=== PATIENT | female | born 1955 | race Caucasian/White ===

== ENCOUNTER 2020-02-23 09:25 | Emergency (ER) | payer MEDICARE, SELFPAY ==
[2020-02-23 09:40] VITALS: BP 143/80; PULSE 63; RESP 16; TEMP 37.1; O2SAT 99
--- NOTE | 2020-02-23 09:48 | ED.EYEPROB ---
HPI - Eye Problem General Chief complaint: Eye Problems Stated complaint: itch/swollen eyes Time Seen by Provider: 02/23/20 09:48 Source: patient and RN notes reviewed History of Present Illness HPI Narrative: Patient is a 64-year-old female who presents the urgent care with complaints of bilateral eye swelling, itchiness, redness. Patient states that she recently had her cabinets painted and was cleaning them out with increased dose of Windex. Patient states that she believes may be she has some irritation from the cleaning products . Patient denies being outside or any known insect bites. Denies of any known injury to the eyes. Denies of any fever, changes in vision, nausea, vomiting. Patient does wear eyeglasses and not contacts. No other acute complaints. No acute distress noted. Patient read the plan of care. Related Data Home Medications Medication Instructions Recorded Confirmed anastrozole 1 mg tablet 1 mg PO DAILY 09/09/19 vilazodone 40 mg tablet 40 mg PO DAILY 09/09/19 calcium carbonate 600 mg calcium 600 mg PO DAILY 12/13/19 (1,500 mg) tablet cholecalciferol (vitamin D3) 50 50 mcg PO DAILY 12/13/19 mcg (2,000 unit) capsule diclofenac sodium 75 mg 75 mg PO ONCE tablet 12/13/19 tablet,delayed release Allergies Allergy/AdvReac Type Severity Reaction Status Date / Time No Known Allergies Allergy Unknown Verified 01/08/20 10:41 Review of Systems Review of Systems: Narrative: CONSTITUTIONAL: Denies fever, chills, or sweats. EYES: Reports of itchy bilateral swollen eyes ENT: Denies rhinorrhea, congestion, sore throat, or otalgia. CARDIOVASCULAR: Denies chest pain, palpitations, or edema. RESPIRATORY: Denies cough or dyspnea. GASTROINTESTINAL: Denies abdominal pain, nausea, vomiting, or diarrhea. GENITOURINARY: Denies dysuria or hematuria. SKIN: Denies rash or itching. MUSCULOSKELETAL: Denies back pain, joint pain, or myalgia. NEUROLOGIC: Denies headache, numbness, or weakness. All other systems reviewed are negative, except as documented in HPI. [facility] Social History Social History Smoking status: Never smoker Second hand tobacco smoke exposure: No Alcohol intake: current Comments At the time of my signature, I reviewed and agree with the nursing past medical, surgical, social, and family history. There is no relevant family history pertinent to the patient complaint. Exam Narrative: Exam Narrative: GENERAL: This is a well-nourished, well-developed patient, in no apparent distress. HEAD: normocephalic, atraumatic. EYES: PERRL. Sclera clear/white. Vision is grossly intact. Mild bilateral upper eyelid swelling with mild surrounding erythema bilaterally EARS: External ears normal NOSE: External nose normal with no obvious nasal discharge, nares without redness, no rhinorrhea. THROAT: Mucous membranes moist NECK: Neck supple CARDIOVASCULAR: Regular rate and rhythm without murmurs, gallops, or rubs. RESPIRATORY: Clear to auscultation. Breath sounds equal bilaterally. No wheezes, rales, or rhonchi. SKIN: warm, intact with no suspicious lesions or rash, good texture and turgor. NEURO: awake, alert, and oriented to person, place and time. There were no obvious focal neurologic abnormalities. EXTREMITIES: No clubbing, cyanosis, or edema. Course Vital Signs Vital signs: Vital Signs Temperature 98.7 F 02/23/20 09:40 Pulse Rate 63 02/23/20 09:40 Respiratory Rate 16 02/23/20 09:40 Blood Pressure 143/80 H 02/23/20 09:40 Pulse Oximetry 99 02/23/20 09:40 Temperature 98.7 F 02/23/20 09:40 Pulse Rate 63 02/23/20 09:40 Respiratory Rate 16 02/23/20 09:40 Blood Pressure 143/80 H 02/23/20 09:40 Pulse Oximetry 99 02/23/20 09:40 Reviewed?patient is informed that they may have pre-hypertension or hypertension based on a blood pressure reading in the department. I recommend the patient call the primary care pro
[2020-02-23] MEDS: predniSONE 20 MG TABLET 60 MG PO (10:01)
== END 2020-02-23 10:22 | disposition home or self-care (01) ==
PROVIDERS: Emergency Provider Nurse Practitioner Family
DX: H57.89 Other specified disorders of eye and adnexa (principal); Z85.3 Personal history of malignant neoplasm of breast
CPT/HCPCS: 99213; G0463; J7512

== ENCOUNTER → 2020-07-02 13:49 | Outpatient (CLI) | payer MEDICARE, SELFPAY ==
--- NOTE | ~2020-07-02 | US_ITS ---
EXAMINATION: US pelvic complete w TV DATE: 07/02/2020 14:22 INDICATION: Left lower quadrant pain Comparison:Left lower quadrant pain TECHNIQUE: Multiple transabdominal and endovaginal sonographic images of the pelvis performed. FINDINGS: The uterus measures 5.5 x 2.7 x 3.6 cm. Uterus is retroverted. There are uterine fibroids m easuring 2.1 cm maximum dimension at the fundus. The endometrial complex measures 0.1 cm. The right ovary measures 1.1 x 1.1 x 2 cm and the left ovary measures 1.4 x 1.4 x 1.1 cm. There are o varian calcifications. There are small follicles in each ovary. There is no free fluid in the pelvis. There are no abnormal masses seen on either side. IMPRESSION: 1. Uterine fibroids, largest at the fundus measuring 2.1 x 1.8 x 1.5 cm. Reviewed, dictated and finalized at location A.
== END ==
PROVIDERS: PCP Family Medicine
DX: D25.9 Leiomyoma of uterus, unspecified (principal)
CPT/HCPCS: 76830; 76856

== ENCOUNTER 2020-12-18 07:46 | Outpatient (CLI) | payer MEDICARE, SELFPAY ==
--- NOTE | ~2020-12-18 | US_ITS ---
EXAMINATION: US abdomen limited DATE: 12/18/2020 08:13 INDICATION: Unspecified abdominal pain. TECHNIQUE: Multiple grayscale and Doppler ultrasound images of the abdomen were obtained. COMPARISON: None FINDINGS: The visualized portions of the head and body of the pancreas are normal. The liver is héctor l without focal lesion. No liver surface nodularity. The gallbladder is normal in size and filled wit h stones. No gallbladder wall thickening or sonographic Kang sign. The common duct is dilated to 8 mm. There is normal flow in main portal vein. IMPRESSION: 1. Mildly dilated common duct. 2. Cholelithiasis. No evidence of acute cholecystitis. Reviewed, dictated and finalized at location A.
== END 2020-12-18 07:47 | disposition home or self-care (01) ==
LOC: ANHIMG 07:48
PROVIDERS: PCP Family Medicine; Visit Provider Physician Assistant
DX: R10.9 Unspecified abdominal pain (principal); K80.20 Calculus of gallbladder without cholecystitis without obstruction
CPT/HCPCS: 76705

== ENCOUNTER 2022-07-13 12:35 | Emergency (ER) | payer MEDICARE, SELFPAY ==
--- NOTE | ~2022-07-13 | XR_ITS ---
EXAMINATION: XR foot RT min 3V DATE: 07/13/2022 12:57 INDICATION: Right great toe injury. TECHNIQUE: 4 views of right foot were obtained. COMPARISON: None. FINDINGS: There is a comminuted intra-articular fracture of base of first distal phalanx. The main di stal fracture fragment demonstrates near-anatomic alignment. There is severe osteoarthritis of first metatarsophalangeal joint and mild osteoarthritis of some of the interphalangeal joints. There is an enthesophyte at plantar aspect of calcaneal tuberosity. IMPRESSION: 1. Comminuted fracture of first distal phalanx. 2. 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 Reviewed, dictated and finalized at location A. E TENDER
[2022-07-13 12:46] VITALS: BP 127/68; PULSE 71; RESP 16; TEMP 36.7; O2SAT 99
--- NOTE | 2022-07-13 13:47 | ED.LOWEXIN ---
HPI - Extremity Injury (Lower) General Chief Complaint: Extremity Injury, Lower Stated Complaint: Right Foot Big Toe Pain Time Seen by Provider: 07/13/22 13:47 Source: patient Mode of arrival: ambulatory Limitations: no limitations History of Present Illness HPI Narrative: 67 y/o female presented for c/o right great toe bruising after injury yesterday. States she tripped getting out of her car. Continues to have bleeding from toe and swelling. Denies pain. Denies broken toenail. She has applied bandaid. Related Data Home Medications Medication Instructions Recorded Confirmed calcium carbonate 600 mg calcium 600 mg PO DAILY 12/13/19 07/13/22 (1,500 mg) tablet (Calcium) cholecalciferol (vitamin D3) 50 50 mcg PO DAILY 12/13/19 07/13/22 mcg (2,000 unit) capsule Allergies Allergy/AdvReac Type Severity Reaction Status Date / Time No Known Allergies Allergy Unknown Verified 07/13/22 13:00 Review of Systems Review of Systems: CONSTITUTIONAL: Denies body aches, fever, chills CARDIOVASCULAR: Denies chest pain, palpitations, or edema. RESPIRATORY: Denies cough or dyspnea. SKIN: Denies rash, itching, or wounds. MUSCULOSKELETAL: Left toe bruising and bleeding NEUROLOGIC: Denies headache, numbness, tingling, or weakness. All systems reviewed & are unremarkable except as noted in HPI and below PMFSH Past Medical History Medical History History of right breast cancer Major depressive disorder, recurrent Malignant neoplasm of unspecified site of unspecified female breast Mixed hyperlipidemia Surgical History Surgical History History of back surgery History of knee replacement bilateral History of lumpectomy of right breast [place] teeth extracted Family History Family History Sibling Depression Family history of arthritis Mother Depression Family history of malignant neoplasm of ovary, Onset Age: 63 Grandparent Lung cancer Other Family history of malignant neoplasm Family history of mental disorder No family history of cardiovascular disease No family history of diabetes mellitus No family history of hypertension No family history of malignant neoplasm Social History Social History Second hand tobacco smoke exposure: No Alcohol intake: current Comments At time of signature, I have reviewed and agree with nursing past medical, surgical, social and family history unless otherwise noted. Please see nursing chart for further information. There is no relevant family history pertinent to the presenting complaint Exam Narrative: GENERAL: Well-appearing CHEST: Speaks in full sentences. No respiratory distress. HEART: Regular rate and rhythm. Normal and equal peripheral pulses. EXTREMITIES: Left foot 1st toe with hematoma surrounding cuticle, oozing scant amount of blood from cuticle, nontender, nail is intact, moderate swelling to toe. Toe has normal strength and sensation, slightly limited range of motion to toe. No obvious deformity; pulse palpable and equal bilaterally, skin warm, dry, pink. Capillary refill less than 3 seconds. SKIN: Warm, dry, no rash. Course Course Emergency Course: Patient is aware of diagnosis, understands and agrees to treatment plan. Anticipatory guidance given. Patient agrees to follow-up as directed and is aware of reasons to seek care at the emergency department. Portions of this record may have been created with voice recognition software Level of Care: Express Care Visit Vital Signs Vital signs: Vital Signs Temperature 98.1 F 07/13/22 12:46 Pulse Rate 71 07/13/22 12:46 Respiratory Rate 16 07/13/22 12:46 Blood Pressure 127/68 07/13/22 12:46 Pulse Oximetry 99 07/13/22 12:46 Oxygen Delivery Room Air
== END 2022-07-13 15:02 | disposition home or self-care (01) ==
PROVIDERS: Emergency Provider Nurse Practitioner Family; PCP Student in an Organized Health Care Education/Training Program
DX: S92.421A Displaced fracture of distal phalanx of right great toe, initial encounter for closed fracture (principal); V48.4XXA Person boarding or alighting a car injured in noncollision transport accident, initial encounter; E78.2 Mixed hyperlipidemia; Z85.3 Personal history of malignant neoplasm of breast; Z96.653 Presence of artificial knee joint, bilateral; F32.9 Major depressive disorder, single episode, unspecified
CPT/HCPCS: 73630; 99214; G0463

== ENCOUNTER 2023-11-10 08:25 | Outpatient (CLI) | payer MEDICARE, SELFPAY ==
--- NOTE | ~2023-11-10 | US_ITS ---
Renal-Bladder ultrasound Clinical History: Elevated serum creatinine Technique: Real-time sonographic imaging of the kidneys and urinary bladder was performed. Findings: The right kidney measures 10.5 cm in length and the left kidney measures 11.1 cm. Probable minimal bilateral hydronephrosis. Renal cortical echogenicity is within normal limits. 5 cm left lowe r pole renal cyst present. The urinary bladder is moderately distended at the time of this exam. No intraluminal echoes are iden tified. No abnormal wall thickening is seen. Impression: Probable minimal bilateral hydronephrosis. Reviewed, dictated and finalized at location M. [employer]ING [employer] DIRECT[employer] Impression: Probable minimal bilateral hydronephrosis.
== END 2023-11-10 08:26 | disposition home or self-care (01) ==
PROVIDERS: PCP Student in an Organized Health Care Education/Training Program; Visit Provider Student in an Organized Health Care Education/Training Program
DX: R79.89 Other specified abnormal findings of blood chemistry (principal)
CPT/HCPCS: 76770

== ENCOUNTER 2025-01-29 10:17 | Outpatient (CLI) | payer MEDICARE, SELFPAY ==
--- NOTE | ~2025-01-29 | US_ITS ---
Limited Abdominal Sonogram: Real-time sonographic imaging of the right upper quadrant was performed. Clinical History: Right upper quadrant pain Findings: The liver appears normal with no evidence of mass lesion or bile duct dilatation. Main por delroy vein demonstrates normal direction of flow. The gallbladder is partially distended with echogenic shadowing gallstones probably present, with wall echo shadow complex. The common bile duct measures 9 mm. The visualized pancreas, aorta, and IVC are unremarkable. Impression: Cholelithiasis, gallbladder probably filled with stones. Mildly dilated common bile duct. Consider MRCP to further evaluate for common duct stones, if indicat ed. Reviewed, dictated and finalized at location . Impression: Cholelithiasis, gallbladder probably filled with stones. Mildly dilated common bile duct. Consider MRCP to further evaluate for common d uct stones, if indicated.
== END 2025-01-29 10:18 | disposition home or self-care (01) ==
LOC: MICIMG 10:18
PROVIDERS: PCP Student in an Organized Health Care Education/Training Program; Visit Provider Student in an Organized Health Care Education/Training Program
DX: K80.80 Other cholelithiasis without obstruction (principal); K83.8 Other specified diseases of biliary tract
CPT/HCPCS: 76705

== ENCOUNTER 2025-04-18 14:55 | Emergency (ER) | payer MEDICARE, SELFPAY ==
--- NOTE | ~2025-04-18 | XR_ITS ---
EXAMINATION: XR toe 5th RT min 2V DATE: 04/18/2025 15:22 INDICATION: Right fifth toe pain post trauma one week prior TECHNIQUE: Dorsal plantar, lateral and oblique views of the right fifth were obtained. COMPARISON: None FINDINGS: Nondisplaced extra articular fracture extending across the proximal metaphyseal region of the right f ifth proximal phalanx. Alignment remains essentially anatomic. No other fractures identified. Polyart icular osteoarthritis, moderate severity at the second metatarsophalangeal joint and mild at a few of the tarsometatarsal and interphalangeal joints. IMPRESSION: Nondisplaced extra articular fracture near the base of the fifth proximal phalanx. Reviewed, dictated and finalized at location A. IMPRESSION: Nondisplaced extra articular fracture near the base of the fifth proximal phala nx.
[2025-04-18 15:06] VITALS: BP 126/82; PULSE 77; RESP 16; TEMP 37.3; O2SAT 98
--- NOTE | 2025-04-18 15:22 | ED_ITS ---
HPI - Extremity Injury (Lower) General Chief Complaint: Extremity Injury, Lower Stated Complaint: Right Foot Toe Pain Time Seen by Provider: 04/18/25 15:35 Source: patient and RN notes reviewed Mode of arrival: ambulatory Limitations: no limitations History of Present Illness HPI Narrative: 70-year-old female presents concern for pain the 5th digit of the right foot. One week ago she jammed it on a chair. Reports she has been using ice and elevation. Reports pain continues despite those interventions. She reports mild swelling. MD complaint: foot injury Related Data Home Medications ?Medication ?Instructions ?Recorded ?Confirmed ?Last Taken ?Type cholecalciferol (vitamin D3) 50 50 mcg PO DAILY 12/13/19 10/26/22 Unknown History mcg (2,000 unit) capsule sertraline 50 mg tablet mg 04/18/25 Unknown History Allergies Allergy/AdvReac Type Severity Reaction Status Date / Time bupropion (From Wellbutrin) AdvReac Intermediate Nausea and Verified 04/18/25 15:15 Vomiting magnesium AdvReac Mild Diarrhea Verified 04/18/25 15:15 gabapentin AdvReac Nausea and Verified 04/18/25 15:15 Vomiting Review of Systems Review of Systems: CONSTITUTIONAL: Denies malaise, chills, sweats, or fever. SKIN: Denies rash or itching, open skin, laceration, abrasion, redness, warmth MUSCULOSKELETAL: Reports pain and swelling in the 5th digit of the right foot NEUROLOGIC: Denies numbness, weakness All systems reviewed & are unremarkable except as noted in HPI and below PMFSH Past Medical History Medical History (Updated 04/18/25 @ 15:44 by Lien Velazquez NP) Fracture of right great toe distal phalanx July 2022 Cancer Arthritis History of right breast cancer Malignant neoplasm of unspecified site of unspecified female breast Mixed hyperlipidemia Major depressive disorder, recurrent Surgical History Surgical History History of lumpectomy of right breast [place] teeth extracted History of back surgery History of knee replacement bilateral Family History Family History Sibling Depression Family history of arthritis Mother Depression Family history of malignant neoplasm of ovary, Onset Age: 63 Grandparent Lung cancer Other Family history of malignant neoplasm Family history of mental disorder No family history of cardiovascular disease No family history of diabetes mellitus No family history of hypertension No family history of malignant neoplasm Social History Social History Smoking status: Never smoker Second hand tobacco smoke exposure: No Alcohol intake: current Substance use type: does not use Living arrangements: with family Occupation/Education: retired Additional occupation/education comments: teacher Comments At time of signature, agree with nursing past medical, surgical, social and family history. There is no relevant family history pertinent to the presenting complaint Exam Narrative: GENERAL: Well-appearing, well-nourished, and in no acute distress. HEAD: Normocephalic, atraumatic. EYES: PERRLA, conjunctivae clear NECK: Supple. CHEST: Speaks in full sentences. No respiratory distress. HEART: Regular rate and rhythm. Normal and equal peripheral pulses. EXTREMITIES: 5th digit of the right foot has grossly normal strength and sensation, grossly normal range of motion. Mild edema, no ecchymosis. Normal sensation with sensitivity to light touch and pain. General digit tenderness. No open wounds, no skin tenting, no devitalized tissue or atrophy, no trophic changes, no obvious deformity, alignment normal, nearby joints and structures intact. Distal pulses palpable and equal bilaterally, skin warm, dry, pink. Capillary refill less than 3 seconds. SKIN: Warm, dry, no rash. NEURO: Alert and oriented x3. PSYCH: Normal mood and affect Course Course Emergency Course: Patient is aware of diagnosis, understands and agrees to treatment plan. Anticipatory guidance given. Patient agrees to follow-up as directed and is aware of reasons to seek care at the emergency department. Portions of this record may have been created with voice recognition software Level of Care: Express Care Visit Vital Signs Vital signs: Vital Signs Temperature 99.1 F 04/18/25 15:06 Pulse Rate 77 04/18/25 15:06 Respiratory Rate 16 04/18/25 15:06 Blood Pressure 126/82 04/18/25 15:06 Pulse Oximetry 98 04/18/25 15:06 Oxygen Delivery Room Air 04/18/25 15:06 Temperature 99.1 F 04/18/25 15:06 Pulse Rate 77 04/18/25 15:06 Respiratory Rate 16 04/18/25 15:06 Blood Pressure 126/82 04/18/25 15:06 Pulse Oximetry 98 04/18/25 15:06 Oxygen Delivery Room Air 04/18/25 15:06 Reviewed. MDM - Extremity Injury (Lower) MDM Narrative Medical decision making narrative: The patient was evaluated by myself in the express care. History is obtained from patient who is an independent historian and physical exam was performed.? Available medical records were reviewed at this time. ? Exam findings show no acute concerns or changes; patient is non-toxic appearing and is in no distress. Patient is appropriate for outpatient treatment and follow-up. ? I have evaluated and discussed social determinants of health with the patient that could potentially impact subsequent diagnosis and treatment plans. ? Patients injury and pain is consistent with musculoskeletal etiology. No signs of neurological or vascular compromise on exam. Compartments and tissues are soft without signs of compartment syndrome. Pain is felt appropriate for further evaluation on an outpatient basis. Imaging Data My impression: Images reviewed, interpreted by radiologist, agree, see report. Radiologist's impression: EXAMINATION: XR toe 5th RT min 2V DATE: 04/18/2025 15:22 INDICATION: Right fifth toe pain post trauma one week prior TECHNIQUE: Dorsal plantar, lateral and oblique views of the right fifth were obtained. COMPARISON: None FINDINGS: Nondisplaced extra articular fracture extending across the proximal metaphyseal region of the right fifth proximal phalanx. Alignment remains essentially anatomic. No other fractures identified. Polyarticular osteoarthritis, moderate severity at the second metatarsophalangeal joint and mild at a few of the tarsometatarsal and interphalangeal joints. IMPRESSION: Nondisplaced extra articular fracture near the base of the fifth proximal phalanx. Critical Care Time Critical Care Time Critical Care Time: No Discharge Plan Discharge Clinical Impression: Fracture of toe of right foot Qualifiers: Encounter type: initial encounter Toe: lesser toe Fracture type: closed Fracture alignment: nondisplaced Patient Disposition: Home Condition: Stable Instructions: Toe Fracture (ED) Additional Instructions: Please rest, ice and elevate the affected extremity. Please take Motrin 600mg every 8 hours, as needed, for pain (take with food). you can take Tylenol between doses of ibuprofen as needed for pain. Follow up with Orthopedic Surgery in 1-2 days for further evaluation. Keep toe debbie-taped in use orthopedic shoe while weight-bearing. Please go to ER immediately for increased pain, tingling/numbness, swelling, redness, and fever Patient Language: [place] Prescriptions: No Action sertraline 50 mg tablet cholecalciferol (vitamin D3) 50 mcg (2,000 unit) capsule 50 mcg PO DAILY Follow-up/Referrals: Aldair Xavier MD [Physician] - [facility],DO Tad [Primary Care Provider] - Time of Disposition: 15:44
== END 2025-04-18 15:50 | disposition home or self-care (01) ==
PROVIDERS: Emergency Provider Nurse Practitioner; PCP Student in an Organized Health Care Education/Training Program
DX: S92.514A Nondisplaced fracture of proximal phalanx of right lesser toe(s), initial encounter for closed fracture (principal); W22.03XA Walked into furniture, initial encounter; E78.2 Mixed hyperlipidemia; F32.9 Major depressive disorder, single episode, unspecified; M19.90 Unspecified osteoarthritis, unspecified site; Z85.3 Personal history of malignant neoplasm of breast; Z90.11 Acquired absence of right breast and nipple; Z96.653 Presence of artificial knee joint, bilateral
CPT/HCPCS: 73660; 99214; G0463